=== PATIENT | female | born 1950 | race Caucasian/White ===

== ENCOUNTER 2021-02-19 16:33 | Outpatient (REF) | payer MEDICARE, SELFPAY ==
--- NOTE | ~2021-02-19 | CT_ITS ---
EXAMINATION: CT CHEST WITHOUT CONTRAST CLINICAL INFORMATION: Pulmonary nodules. COMPARISON: None. TECHNIQUE: Multidetector volumetric CT imaging of the chest was done. Axial MIP volume rendering provided. Sagittal and coronal reformatted images were obtained. This CT examination was performed using dose optimization techniques as appropriate, variously including the following: *Automated exposure control *Adjustment of mA and/or kV according to patient size (this includes techniques or standardized protocols for targeted exams where dose is matched to indication/reason for exam; i.e. extremities or head) *Use of iterative reconstruction technique DLP: 177 mGy-cm. FINDINGS: LUNGS: There is biapical pleural and parenchymal scarring. There are increased peripheral reticular markings in the left upper lobe and pleural thickening, question related to previous chest wall radiation. There is a 2 mm right upper lobe nodule axial image 117 series 8. There is a 6 mm calcified right upper lobe nodule axial image 129 series 8. There is a 4 mm right upper lobe nodule axial image 184 series 8. There are 4 mm left upper lobe nodules axial image 186 and 192 series 8. There may be a 5 mm left upper lobe nodule axial image 196 series 8. There is a 4 mm peripheral or subpleural left lower lobe nodule axial image 243 series 8. There is a 9 mm right middle lobe nodule axial image 286 series 8. There is a 3 mm right lower lobe nodule axial image 339 series 8. There is a 3 mm peripheral or subpleural left lower lobe nodule axial image 386 series 8. MEDIASTINUM: There is a calcified right precarinal lymph node measuring 1 cm. There are smaller noncalcified mediastinal lymph nodes. The heart does not appear enlarged. There is mild coronary artery calcification. There is no pericardial effusion. There may be a small esophageal hernia. PLEURA: There is no pleural effusion. There is pleural thickening and pleural calcification adjacent to the left upper lobe. AXILLA: There are postsurgical changes to the left breast and surgical clips. There is an asymmetric soft tissue density seen adjacent to the surgical clips. There are no enlarged axillary lymph nodes. UPPER ABDOMEN: There are calcifications in the spleen and liver likely related to old granulomatous disease. There is diverticulosis of the colon. OSSEOUS STRUCTURES: There are degenerative changes of the spine. CT/CT chest wo con IMPRESSION: Bilateral pulmonary nodules, the largest measuring 9 mm in the right middle lobe. Increased peripheral interstitial markings and adjacent pleural thickening and pleural calcification in the left upper lobe, question related to previous chest wall radiation. Postsurgical changes to the left breast. Evidence of old granulomatous disease. Comparison with old outside exams if available and chest CT follow-up recommended. Fleischner guidelines were followed.
== END 2021-02-19 16:34 | disposition home or self-care (01) ==
LOC: HO.CT 16:33
PROVIDERS: PCP Family Medicine; Visit Provider Internal Medicine
DX: J70.0 Acute pulmonary manifestations due to radiation (principal); R91.8 Other nonspecific abnormal finding of lung field
CPT/HCPCS: 71250